=== PATIENT | female | born 1940 | race Caucasian/White ===

== ENCOUNTER → 2016-05-07 | Outpatient (CLI) | payer MEDICARE | LOC: EXRD 08:48 | DX: M54.5 Low back pain (principal); M25.559 Pain in unspecified hip; M47.816 Spondylosis without myelopathy or radiculopathy, lumbar region; M25.851 Other specified joint disorders, right hip | CPT/HCPCS: 72100; 73502 ==

== ENCOUNTER → 2016-05-21 | Outpatient (CLI) | payer MEDICARE | LOC: EXRD 13:25 | DX: M85.80 Other specified disorders of bone density and structure, unspecified site (principal); M85.852 Other specified disorders of bone density and structure, left thigh | CPT/HCPCS: 77080 ==

== ENCOUNTER → 2016-06-22 | Outpatient (CLI) | payer MEDICARE | LOC: EMI 13:00 | DX: M54.5 Low back pain (principal); M47.816 Spondylosis without myelopathy or radiculopathy, lumbar region; M99.53 Intervertebral disc stenosis of neural canal of lumbar region; M99.73 Connective tissue and disc stenosis of intervertebral foramina of lumbar region | CPT/HCPCS: 72148 ==

== ENCOUNTER → 2016-06-26 | Outpatient (CLI) | payer MEDICARE | LOC: KOH-I 09:55 | DX: R93.8 Abnormal findings on diagnostic imaging of other specified body structures (principal); M99.83 Other biomechanical lesions of lumbar region; E27.8 Other specified disorders of adrenal gland; R93.421 Abnormal radiologic findings on diagnostic imaging of right kidney; R93.422 Abnormal radiologic findings on diagnostic imaging of left kidney | CPT/HCPCS: 74177; Q9962 ==

== ENCOUNTER → 2016-08-06 | Outpatient (CLI) | payer MEDICARE | LOC: HEART 5 09:32 | DX: Z90.2 Acquired absence of lung [part of] (principal); R94.2 Abnormal results of pulmonary function studies; F17.200 Nicotine dependence, unspecified, uncomplicated | CPT/HCPCS: 94060; 94729 ==

== ENCOUNTER → 2016-08-07 | Outpatient (CLI) | payer MEDICARE | LOC: CT 08-06 08:30 | DX: C50.419 Malignant neoplasm of upper-outer quadrant of unspecified female breast (principal); J98.4 Other disorders of lung; R91.1 Solitary pulmonary nodule; Z90.12 Acquired absence of left breast and nipple; Z90.11 Acquired absence of right breast and nipple | CPT/HCPCS: 71260; J7050; Q9962 ==